=== PATIENT | male | born 1980 | race African-American/Black ===

== ENCOUNTER 2021-03-18 10:35 | Emergency (ER) | payer OTHER, SELFPAY ==
--- NOTE | 2021-03-18 10:37 | ED.MALEGU ---
HPI - Male Genitourinary General Chief complaint: Urogenital-Male Stated complaint: genital rash Time Seen by Provider: 03/18/21 10:42 Source: patient and RN notes reviewed Mode of arrival: ambulatory Limitations: no limitations History of Present Illness HPI Narrative: 40-year-old male presents with concern for a rash on his penis. He is unsure how long its been there. He reports it does not itch, reports it does not hurt. He reports he was for 7 years, and has only had 1 sexual partner after his marriage and that was 1 year ago. He is not concerned for STDs. He denies any dysuria, frequency, urgency, hematuria, penile discharge. He denies redness, swelling, pain in his testicles. He denies intervention. In a separate complaint he reports he has a laceration on his third digit of his right hand that he sustained on March 05 that is not healing well. MD Complaint: other (Genital warts) Related Data Home Medications Medication Instructions Recorded Confirmed No Home Medications 03/18/21 03/18/21 Allergies Allergy/AdvReac Type Severity Reaction Status Date / Time No Known Allergies Allergy Mild Verified 11/13/07 17:54 Review of Systems Review of Systems: CONSTITUTIONAL: Denies malaise, chills, sweats, or fever. GASTROINTESTINAL: Denies abdominal pain, nausea, vomiting, diarrhea GENITOURINARY: Denies dysuria, urgency, frequency, penile discharge, or hematuria. SKIN: Reports rash on his penis. Reports a slow healing laceration on the third digit of his right hand All systems reviewed & are unremarkable except as noted in HPI and below PMFSH Comments At time of signature, agree with nursing past medical, surgical, social and family history. There is no relevant family history pertinent to the presenting complaint Exam Narrative: GENERAL: Well-appearing, well-nourished, and in no acute distress. HEAD: Normocephalic, atraumatic. EYES: PERRLA, conjunctivae clear ENT: Mucous membranes moist. NECK: Supple. No lymphadenopathy CHEST: Clear to auscultation. No respiratory distress. HEART: Regular rate and rhythm. SKIN: Warm, dry. 2 cm laceration into the subcutaneous tissue on the third digit of the right hand on the PIP joint, with surrounding scab, wound gapes when the finger is flexed. No surrounding erythema, induration, purulent drainage. 3 large wart clusters noted to the penile shaft without redness, induration. NEURO: Alert and oriented x3. PSYCH: Normal mood and affect : Meatus: meatus normal Scrotum: scrotum normal Testes: Testes normal Course Course Emergency Course: Patient is aware of diagnosis, understands and agrees to treatment plan. Anticipatory guidance given. Patient agrees to follow-up as directed and is aware of reasons to seek care at the emergency department. Portions of this record may have been created with voice recognition software Vital Signs Vital signs: Reviewed. MDM - Male Genitourinary MDM Narrative Medical decision making narrative: Exam findings show no acute concerns or changes; patient is non-toxic appearing and is in no distress. Patient is appropriate for outpatient treatment and follow-up. Differential Diagnosis Differential diagnosis: Likely urinary tract infection, urethritis, epididymitis, genital herpes simplex and other (STI) Critical Care Time Critical Care Time Critical Care Time: No Discharge Plan Discharge Clinical Impression: Genital warts, Laceration Condition: Stable Instructions: Genital Warts (ED) Additional Instructions: 1) Please follow-up with your primary care doctor for further evaluation. 2) If you have any worsening of symptoms or any other urgent concerns please go to the ER. 3) Please take medications as prescribed. 4) Please read and follow information included in discharge instructions. Avoid sexual contact for other creams on your skin, the cream might weaken condoms and irritate your partner skin. Apply Vaselin
[2021-03-18 10:42] VITALS: BP 133/73; PULSE 104; RESP 16; TEMP 37.4; O2SAT 100
== END 2021-03-18 11:17 | disposition home or self-care (01) ==
PROVIDERS: Emergency Provider Nurse Practitioner
DX: A63.0 Anogenital (venereal) warts (principal); S61.212A Laceration without foreign body of right middle finger without damage to nail, initial encounter; X58.XXXA Exposure to other specified factors, initial encounter
CPT/HCPCS: 99203; G0463